=== PATIENT | male | born 1970 | race Caucasian/White ===

== ENCOUNTER 2023-07-06 10:10 | Outpatient (AMB) | payer BC, SELFPAY ==
[2023-07-06 10:11] VITALS: BP 136/92; PULSE 68; O2SAT 99; BMI 36.8
--- NOTE | 2023-07-06 10:11 | HO.NEPHOV_ITS ---
Vital Signs 07/06/23 10:11 07/06/23 19:08 Height 6 ft Weight 271 lb BMI 36.8 BP 136/92 H 120/70 Blood Pressure Location Lt brachial Lt brachial Position Sitting Supine Pulse 68 Pulse Source Pulse Oximeter Pulse Oximetry (%) 99 Oxygen Delivery Method Room Air Intake Visit Reasons: Hypertension/ Confirmed Floor Associate Required: No Accompanied by: Self / Same As Patient Allergies No Known Allergies Allergy (Verified 07/06/23 10:12) HPI Comments Details: Jose is a pleasant 52 yr old man with a h/o of longstanding hypertension Blood pressure has been difficult to control and hence this referral He is on Lisinopril 20 mg, HCTZ 12.5 mg and Amlodipine 5 mg daily Amlodipine was decreased from 10 mg down to 5mg due to edema h/o YOLANDE- uses CPAP most of the nights Drinks alcohol over weekends- socailly; Usualy , [place]- upto 4 ROS No weight loss No shortness of breath No chest pain No nausea or vomiting No diarrhea No polyuria, oliguria No edema No headache No palpitations or unexplained sweating PFSH Surgical History H/O colonoscopy (~07/2022) Family History Mother Breast cancer Brother Melanoma Father Cancer of prostate Social History (Updated 07/06/23 @ 10:13 by Ratna Moy) Patient Tobacco Use Status: Former Tobacco user Physical Exam Vital Signs: Last Vital Signs Pulse 68 07/06/23 10:11 BP 136/92 H 07/06/23 10:11 Pulse Ox 99 07/06/23 10:11 Oxygen Delivery Method Room Air 07/06/23 10:11 BMI result Body Mass Index 36.8 Const General: comfortable Nutritional Appearance: well nourished Orientation/consciousness: patient oriented x3 HEENT Head: No normal to inspection Mouth: moist mucous membranes Neck Neck: Yes supple and Yes no JVD Resp Auscultation: clear to auscultation bilaterally, no rales and rub present Cardio Jugular venous distension: no JVD Palpation: no palpable S3 and no palpable S4 Heart sounds: no rubs GI Palpation (GI): Soft to palpation and nontender Percussion: No Fluid wave present General: Yes no CVA tenderness Back/Spine/Pelvis Back: no CVA tenderness Skin General skin exam: no rashes or lesions noted Neuro General: patient oriented x3 Extrem General: Yes no pedal edema and No clubbing Results Reviewed Results Reviewed: Labs reveiwed Nephrology Results: No Data to Display Assessment & Plan Assessment & Plan (1) HTN (hypertension): Code(s): I10 - Essential (primary) hypertension Category: Medical (2) Sleep apnea: Code(s): G47.30 - Sleep apnea, unspecified Category: Medical Plan Middle aged man with difficult to control HTN in a setting of YOLANDE and elevated BMI Today the BP is acceptable I will obtain a 24 hr ABPM to better evaluate the control of BP Would continue current medications for now Discussed low salt diet and increasing physical activity. Limit alcohol intake Re evalate sleep apnea and CPAP machine. Refer to Sleep Medicine Orders: Orders AMB 24 Hour Blood Pressure Monitor PLACEMENT 15 Days I10 - Essential (primary) hypertension Referrals Sleep Medicine Referral G47.30 - Sleep apnea, unspecified Coding Level of Care Code New Pt Level 4 (34275) Diagnoses HTN (hypertension) I10 Sleep apnea G47.30
[2023-07-06 19:08] VITALS: BP 120/70
== END 2023-07-06 10:39 | disposition home or self-care (01) ==
PROVIDERS: PCP Family Medicine; Referring Provider Family Medicine; Visit Provider Internal Medicine Hypertension Specialist
DX: I10 Essential (primary) hypertension (principal); G47.30 Sleep apnea, unspecified
CPT/HCPCS: 99204

== ENCOUNTER → 2023-07-06 10:10 | Outpatient (BNVA) | payer BC, SELFPAY | PROVIDERS: PCP Family Medicine; Referring Provider Family Medicine; Visit Provider Internal Medicine Hypertension Specialist ==

== ENCOUNTER → 2023-08-21 09:15 | Outpatient (BNVA) | payer BC, SELFPAY | PROVIDERS: PCP Family Medicine; Visit Provider Internal Medicine Hypertension Specialist ==

== ENCOUNTER 2023-08-22 09:19 | Outpatient (AMB) | payer BC, SELFPAY ==
[2023-08-22 09:22] VITALS: BP 128/78; PULSE 76; O2SAT 97; BMI 37.3
--- NOTE | 2023-08-22 09:22 | HO.NEPHOV ---
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 [employer] Required: No Accompanied by: Self / Same As Patient Allergies No Known Allergies Allergy (Verified 08/22/23 09:24) Medication List - Last Reconciled 08/22/23 by Humza Frederick MD amlodipine 5 mg PO DAILY lisinopril 20 mg PO .evening rosuvastatin 5 mg PO DAILY sildenafil 100 mg PO PRN spironolacton-hydrochlorothiaz 25-25 mg 1 tab PO DAILY HPI Comments Details: Jose is a pleasant 52 yr old man with a h/o of longstanding hypertension Blood pressure has been difficult to control and hence this referral He is on Lisinopril 20 mg, HCTZ 12.5 mg and Amlodipine 5 mg daily Amlodipine was decreased from 10 mg down to 5mg due to edema h/o YOLANDE- uses CPAP most of the nights Drinks alcohol over weekends- socailly; Usualy , [place]- upto 4 ROS No weight loss No shortness of breath No chest pain No nausea or vomiting No diarrhea No polyuria, oliguria No edema No headache No palpitations or unexplained sweating 08/22/2023. Underwent 24 hour ABPM [facility] Surgical History H/O colonoscopy (~07/2022) Family History Mother Breast cancer Brother Melanoma Father Cancer of prostate Social History Patient Tobacco Use Status: Former Tobacco user Physical Exam Vital Signs: Last Vital Signs Pulse 76 08/22/23 09:22 BP 128/78 08/22/23 09:22 Pulse Ox 97 08/22/23 09:22 Oxygen Delivery Method Room Air 08/22/23 09:22 BMI result Body Mass Index 37.3 Const General: comfortable Nutritional Appearance: well nourished Orientation/consciousness: patient oriented x3 HEENT Head: No normal to inspection Mouth: moist mucous membranes Neck Neck: Yes supple and Yes no JVD Resp Auscultation: clear to auscultation bilaterally and no rales Cardio Jugular venous distension: no JVD Palpation: no palpable S3 and no palpable S4 Heart sounds: no rubs GI Palpation (GI): Soft to palpation and nontender Percussion: No Fluid wave present General: Yes no CVA tenderness Back/Spine/Pelvis Back: no CVA tenderness Skin General skin exam: no rashes or lesions noted Neuro General: patient oriented x3 Extrem General: Yes no pedal edema and No clubbing Results Reviewed Nephrology Results: No Data to Display Assessment & Plan Assessment & Plan (1) HTN (hypertension): Code(s): I10 - Essential (primary) hypertension Category: Medical (2) Sleep apnea: Code(s): G47.30 - Sleep apnea, unspecified Category: Medical Plan Middle aged man with difficult to control HTN in a setting of YOLANDE and elevated BMI Today the BP is acceptable ABPM. Results: Daytime average blood pressure was 150/102 Nighttime average blood pressure 133/87 24 hour average blood pressure was 145/97. Based on ABPM, blood pressure is suboptimally controlled with suboptimal nocturnal dipping. Sleep apnea could be contributing to this as well. Plan Discontinue hydrochlorothiazide Replace with Aldactazide 25/25 1 a day. Keep amlodipine 5 mg in the morning Switch lisinopril from 20 mg to q.p.m. instead of morning Discussed low salt diet and increasing physical activity. Limit alcohol intake Needs to monitor blood pressure at home. Based on home blood pressure readings we can readjust medications. Re evalate sleep apnea and CPAP machine. Refer to Sleep Medicine Orders: Orders Comprehensive Met. Panel Today I10 - Essential (primary) hypertension AMB 24HR B/P Monitor INTERPRETATION Today I10 - Essential (primary) hypertension Medications: New spironolacton-hydrochlorothiaz 25-25 mg 1 tab PO DAILY 30 tabs 3RF Changed From amlodipine 5 mg PO DAILY To amlodipine 5 mg PO DAILY 90 tabs 3RF Coding Level of Care Code Est Pt Level 4 (55116) Diagnoses HTN (hypertension) I10 Sleep apnea G47.30
== END 2023-08-22 09:50 | disposition home or self-care (01) ==
PROVIDERS: PCP Family Medicine; Visit Provider Internal Medicine Hypertension Specialist
DX: I10 Essential (primary) hypertension (principal); G47.30 Sleep apnea, unspecified
CPT/HCPCS: 93790; 99214

== ENCOUNTER → 2023-08-22 09:19 | Outpatient (BNVA) | payer BC, SELFPAY | PROVIDERS: PCP Family Medicine; Visit Provider Internal Medicine Hypertension Specialist ==

== ENCOUNTER 2023-08-22 10:11 | Outpatient (REF) | payer BC, SELFPAY ==
[2023-08-22 12:46] LABS: Alanine Aminotransferase 41 U/L (0-40); Albumin Level 4.5 g/dL (3.5-5.0); Alkaline Phosphatase 35 U/L (39-117); Anion Gap 14 (12-20); Aspartate Amino Transferase 24 U/L (5-37); Bilirubin Total 0.5 mg/dL (0.0-1.0); Blood Urea Nitrogen 12 mg/dL (9-16); Calcium 9.4 mg/dL (8.4-10.2); Carbon Dioxide 26 mmol/L (22-29); Chloride 104 mmol/L (96-108); Estimated Glomerular Filt Rate > 60; Glucose Random 103 mg/dL (60-115); Potassium 3.6 mmol/L (3.3-5.1); Sodium 140 mmol/L (135-145); Total Protein 6.9 g/dL (6.5-8.0)
== END 2023-08-22 10:12 | disposition home or self-care (01) ==
LOC: HO.10HDL 10:11
PROVIDERS: Referring Provider Family Medicine; Visit Provider Internal Medicine Hypertension Specialist
DX: I10 Essential (primary) hypertension (principal)
CPT/HCPCS: 36415; 80053

== ENCOUNTER 2023-09-21 13:50 | Outpatient (AMB) | payer BC, SELFPAY ==
[2023-09-21 13:51] VITALS: BP 122/82; PULSE 88; O2SAT 97; BMI 36.9
--- NOTE | 2023-09-21 13:51 | HO.NEPHOV_ITS ---
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 Allergies No Known Allergies Allergy (Verified 09/21/23 13:53) Medication List - Last Reconciled 09/21/23 by Humza Frederick MD amlodipine 5 mg PO DAILY lisinopril 20 mg PO .evening rosuvastatin 5 mg PO DAILY sildenafil 100 mg PO PRN spironolacton-hydrochlorothiaz 25-25 mg 1 tab PO DAILY HPI Comments Details: Jose is a pleasant 52 yr old man with a h/o of longstanding hypertension Blood pressure has been difficult to control and hence this referral He is on Lisinopril 20 mg, HCTZ 12.5 mg and Amlodipine 5 mg daily Amlodipine was decreased from 10 mg down to 5mg due to edema h/o YOLANDE- uses CPAP most of the nights Drinks alcohol over weekends- socailly; Usualy , [place]- upto 4 ROS No weight loss No shortness of breath No chest pain No nausea or vomiting No diarrhea No polyuria, oliguria No edema No headache No palpitations or unexplained sweating 08/22/2023. Underwent 24 hour ABPM 09/21/2023. He has been monitoring blood pressure at home and systolic blood pressure between 130 and 140 mm Hg with a diastolic between 80 and 90 mm Hg. No new complaints today. Tolerating all his medications PFSH Surgical History H/O colonoscopy (~07/2022) Family History Mother Breast cancer Brother Melanoma Father Cancer of prostate Social History Patient Tobacco Use Status: Former Tobacco user Physical Exam Vital Signs: Last Vital Signs Pulse 88 09/21/23 13:51 BP 122/82 09/21/23 13:51 Pulse Ox 97 09/21/23 13:51 Oxygen Delivery Method Room Air 09/21/23 13:51 BMI result Body Mass Index 36.9 Const General: comfortable; No acute distress Orientation/consciousness: patient oriented x3 Eyes General: appearance normal, both eyes and all related structures Visual Farooq: normal visual farooq by confrontation Neck Neck: Yes supple and Yes no JVD Resp Effort & Inspection: normal respiratory effort and respiratory effort not decreased Auscultation: rhonchi Cardio Palpation: no palpable S3 and no palpable S4 Heart sounds: no rubs GI Inspection: Yes normal to inspection Palpation (GI): Soft to palpation Percussion: Yes normal to percussion Auscultation: normal bowel sounds General: Yes no CVA tenderness Back/Spine/Pelvis Back: no CVA tenderness Skin General skin exam: no petechiae and no purpura Neuro General: patient oriented x3 and no focal motor deficits Extrem General: No clubbing and No edema Results Reviewed Nephrology Results: Sodium 140 mmol/L (135-145) 08/22/23 Potassium 3.6 mmol/L (3.3-5.1) 08/22/23 Chloride 104 mmol/L (96-108) 08/22/23 Carbon Dioxide 26 mmol/L (22-29) 08/22/23 BUN 12 mg/dL (9-16) 08/22/23 Creatinine 0.87 mg/dL (0.5-1.4) 08/22/23 Calcium 9.4 mg/dL (8.4-10.2) 08/22/23 Assessment & Plan Assessment & Plan (1) HTN (hypertension): Code(s): I10 - Essential (primary) hypertension Category: Medical (2) Sleep apnea: Code(s): G47.30 - Sleep apnea, unspecified Category: Medical Plan Middle aged man with difficult to control HTN in a setting of YOLANDE and elevated BMI Today the BP is acceptable ABPM. Results: Daytime average blood pressure was 150/102 Nighttime average blood pressure 133/87 24 hour average blood pressure was 145/97. Based on ABPM, blood pressure is suboptimally controlled with suboptimal nocturnal dipping. Sleep apnea could be contributing to this as well. Plan Keep Aldactazide 25/25 1 a day. Keep amlodipine 5 mg in the morning Continue lisinopril 20 mg q.p.m. instead of morning Discussed low salt diet and increasing physical activity. Limit alcohol intake Needs to monitor blood pressure at home. I have asked him to bring his blood pressure cuff during next visit to check the accuracy. Re evalate sleep apnea and CPAP machine. Refer to Sleep Medicine Orders: Referrals Sleep Medicine Referral G47.30 - Sleep apnea, unspecified Coding Level of Care Code Est Pt Level 3 (50024) Diagnoses HTN (hypertension) I10 Sleep apnea G47.30
== END 2023-09-21 14:09 | disposition home or self-care (01) ==
PROVIDERS: PCP Family Medicine; Visit Provider Internal Medicine Hypertension Specialist
DX: I10 Essential (primary) hypertension (principal); G47.30 Sleep apnea, unspecified
CPT/HCPCS: 99213

== ENCOUNTER → 2023-09-21 13:50 | Outpatient (BNVA) | payer BC, SELFPAY | PROVIDERS: PCP Family Medicine; Visit Provider Internal Medicine Hypertension Specialist ==

== ENCOUNTER 2023-12-21 10:25 | Outpatient (AMB) | payer BC, SELFPAY ==
[2023-12-21 10:33] VITALS: BP 110/74; PULSE 98; O2SAT 97; BMI 37.3
--- NOTE | 2023-12-21 10:33 | HO.NEPHOV_ITS ---
Vital Signs 12/21/23 10:33 Height 6 ft Weight 275 lb BMI 37.3 BP 110/74 Blood Pressure Location Rt brachial Position Sitting Pulse 98 Pulse Source Pulse Oximeter Pulse Oximetry (%) 97 Oxygen Delivery Method Room Air Intake Visit Reasons: Hypertension Statistical Geneticist Required: No Accompanied by: Self / Same As Patient Allergies No Known Allergies Allergy (Verified 12/21/23 10:35) Medication List - Last Reconciled 12/21/23 by Humza Frederick MD amlodipine 5 mg PO DAILY lisinopril 20 mg PO .evening rosuvastatin 5 mg PO DAILY sildenafil 100 mg PO PRN spironolacton-hydrochlorothiaz 25-25 mg 1 tab PO DAILY HPI Comments Details: Jose is a pleasant 52 yr old man with a h/o of longstanding hypertension Blood pressure has been difficult to control and hence this referral He is on Lisinopril 20 mg, HCTZ 12.5 mg and Amlodipine 5 mg daily Amlodipine was decreased from 10 mg down to 5mg due to edema h/o YOLANDE- uses CPAP most of the nights Drinks alcohol over weekends- socailly; Usualy , [place]- upto 4 ROS No weight loss No shortness of breath No chest pain No nausea or vomiting No diarrhea No polyuria, oliguria No edema No headache No palpitations or unexplained sweating 08/22/2023. Underwent 24 hour ABPM 09/21/2023. He has been monitoring blood pressure at home and systolic blood pressure between 130 and 140 mm Hg with a diastolic between 80 and 90 mm Hg. No new complaints today. Tolerating all his medications PFSH Surgical History H/O colonoscopy (~07/2022) Family History Mother Breast cancer Brother Melanoma Father Cancer of prostate Social History Patient Tobacco Use Status: Former Tobacco user Physical Exam Vital Signs: Last Vital Signs Pulse 98 12/21/23 10:33 BP 110/74 12/21/23 10:33 Pulse Ox 97 12/21/23 10:33 Oxygen Delivery Method Room Air 12/21/23 10:33 BMI result Body Mass Index 37.3 Const General: comfortable; No acute distress Orientation/consciousness: patient oriented x3 Eyes General: appearance normal, both eyes and all related structures Visual Farooq: normal visual farooq by confrontation Neck Neck: Yes supple and Yes no JVD Resp Effort & Inspection: normal respiratory effort and respiratory effort not decreased Auscultation: rhonchi Cardio Palpation: no palpable S3 and no palpable S4 Heart sounds: no rubs GI Inspection: Yes normal to inspection Palpation (GI): Soft to palpation Percussion: Yes normal to percussion Auscultation: normal bowel sounds General: Yes no CVA tenderness Back/Spine/Pelvis Back: no CVA tenderness Skin General skin exam: no petechiae and no purpura Neuro General: patient oriented x3 and no focal motor deficits Extrem General: No clubbing and No edema Results Reviewed Nephrology Results: Sodium 140 mmol/L (135-145) 08/22/23 Potassium 3.6 mmol/L (3.3-5.1) 08/22/23 Chloride 104 mmol/L (96-108) 08/22/23 Carbon Dioxide 26 mmol/L (22-29) 08/22/23 BUN 12 mg/dL (9-16) 08/22/23 Creatinine 0.87 mg/dL (0.5-1.4) 08/22/23 Calcium 9.4 mg/dL (8.4-10.2) 08/22/23 Assessment & Plan Assessment & Plan (1) HTN (hypertension): Code(s): I10 - Essential (primary) hypertension Category: Medical (2) Sleep apnea: Code(s): G47.30 - Sleep apnea, unspecified Category: Medical Plan Middle aged man with difficult to control HTN in a setting of YOLANDE and elevated BMI ABPM. Results: Daytime average blood pressure was 150/102 Nighttime average blood pressure 133/87 24 hour average blood pressure was 145/97. Based on ABPM, blood pressure is suboptimally controlled with suboptimal nocturnal dipping. Sleep apnea could be contributing to this as well. Currently BP is well controlled no orthostasis Plan Keep Aldactazide 25/25 1 a day. Keep amlodipine 5 mg in the morning Continue lisinopril 20 mg q.p.m. instead of morning Discussed low salt diet and increasing physical activity. Limit alcohol intake Continue to monitor blood pressure at home. Orders: Orders Lipid Panel Today G47.30 - Sleep apnea, unspecified, I10 - Essential (primary) hypertension Complete Blood Count Auto Diff Today G47.30 - Sleep apnea, unspecified, I10 - Essential (primary) hypertension Comprehensive Met. Panel Today G47.30 - Sleep apnea, unspecified, I10 - Essential (primary) hypertension Coding Level of Care Code Est Pt Level 4 (05920) Diagnoses HTN (hypertension) I10 Sleep apnea G47.30
== END 2023-12-21 10:54 | disposition home or self-care (01) ==
PROVIDERS: PCP Family Medicine; Referring Provider Family Medicine; Visit Provider Internal Medicine Hypertension Specialist
DX: I10 Essential (primary) hypertension (principal); G47.30 Sleep apnea, unspecified
CPT/HCPCS: 99214

== ENCOUNTER → 2023-12-21 10:25 | Outpatient (BNVA) | payer BC, SELFPAY | PROVIDERS: PCP Family Medicine; Visit Provider Internal Medicine Hypertension Specialist ==

== ENCOUNTER 2023-12-21 10:58 | Outpatient (REF) | payer BC, SELFPAY ==
[2023-12-21 13:08] LABS: MANUAL DIFF FLAG NO
[2023-12-21 13:13] LABS: Basophils Percent Auto 0.4 % (0-2); Eosinophils Absolute Auto 0.1 X10*3/uL (0.0-0.4); Eosinophils Percent Auto 0.9 % (0-4); Hematocrit 39.7 % (42.0-52.0); Hemoglobin 14.4 g/dl (14.0-18.0); Imm Gran Abs Auto 0.03 X10*3/uL (0.00-0.03); Imm Gran Pct Auto 0.4 % (0.0-0.4); Lymphocytes Absolute Auto 1.9 X10*3/uL (1.2-4.9); Lymphocytes Percent Auto 27.2 % (20-40); Mean Corpuscular HGB Conc 36.3 g/dl (31.0-36.0); Mean Corpuscular Volume 91.1 fL (80.0-98.0); Mean Platelet Volume 9.6 fL (9.4-12.4); Monocytes Absolute Auto 0.7 X10*3/uL (0.1-1.2); Monocytes Percent Auto 9.7 % (2-11); Neutrophils Absolute Auto 4.3 x10*3/uL (2.0-8.3); Neutrophils Percent Auto 61.4 % (45-73); Platelet Count 239 X10*3/uL (160-400); Red Blood Count 4.36 X10*6/uL (4.60-5.80); Red Cell Distribution Width 12.9 % (11.0-16.0)
[2023-12-21 13:31] LABS: Alanine Aminotransferase 54 U/L (0-40); Albumin Level 4.5 g/dL (3.5-5.0); Alkaline Phosphatase 27 U/L (39-117); Anion Gap 13 (12-20); Aspartate Amino Transferase 27 U/L (5-37); Bilirubin Total 0.6 mg/dL (0.0-1.0); Blood Urea Nitrogen 14 mg/dL (9-16); Calcium 9.4 mg/dL (8.4-10.2); Carbon Dioxide 27 mmol/L (22-29); Chloride 103 mmol/L (96-108); Cholesterol 156 mg/dL (<200); Estimated Glomerular Filt Rate > 60; Glucose Random 95 mg/dL (60-115); HDL Cholesterol 39 mg/dL (>40); LDL Cholesterol Calculated 91 mg/dL (<100); Potassium 4.1 mmol/L (3.3-5.1); Sodium 139 mmol/L (135-145); Total Protein 6.8 g/dL (6.5-8.0); Triglycerides 133 mg/dL (<150)
== END 2023-12-21 10:59 | disposition home or self-care (01) ==
LOC: HO.10HDL 10:58
PROVIDERS: Referring Provider Family Medicine; Visit Provider Internal Medicine Hypertension Specialist
DX: I10 Essential (primary) hypertension (principal); G47.30 Sleep apnea, unspecified
CPT/HCPCS: 36415; 80053; 80061; 85025

== ENCOUNTER 2024-01-02 10:19 | Outpatient (AMB) | payer BC, SELFPAY ==
--- NOTE | 2024-01-02 10:28 | MHC.OFFVIS ---
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 His last sleep study was completed more than 5 years ago. He is intermittently using his equipment 50% of the time as he sleeps over his girlfriend's home on the weekends and forgets to pack up the machine to bring along. He states the equipment is difficult to use and despite his surgery with [facility] in 2018 for a deviated septum, his breathing continues to be poor on the left side, the right side did improve. His girlfriend complains about his snoring and sleep disturbances. He likes to nap on the weekends for about an hour due to fatigue. Sleep questionnaire- Difficulty falling asleep- No Difficulty staying asleep- No Number of arousals- sleeps right through them because he is very tired Snoring-yes, awakes partner several times a night Witnessed apneas- No Gasping arousals- No Nocturia-yes about 1-2 times per week, awakes to use the bathroom, though he is not bothered by them GERD- No Vivid dreams-No Acting out dreams -No Abnormal behavior in sleep- No Abnormal movements in sleep- No Morning headaches- No Excessive daytime sleepiness-yes in the afternoons Daytime naps- yes mainly when home on the weekends and watching TV falls asleep for about an hour restless legs- No Hallucinations- No sleep paralysis- No Drop attacks- No Sleep study-yes over 5 years ago Results AHI desaturation of oxygen levels however doesn't remember. CPAP yes has an old machine with clunky equipment Sleep Hygiene- usually goes to bed at a decent time without any disturbances Sleep time - 9pm- 10pm Wake time - 7 am coffee/stimulant use Phone Electronics use Exercise not often, needs to start walking. Bedroom comfort- no issues falling asleep ESS PFSH Medical History (Updated 01/02/24 @ 10:50 by Nelia Frederick MD) Hypersomnia Snoring Obstructive sleep apnea Surgical History H/O colonoscopy (~07/2022) Family History Mother Breast cancer Brother Melanoma Father Cancer of prostate Social History Patient Tobacco Use Status: Former Tobacco user Review of Systems Const Details: General: Well appearing, obese male, cooperative. Reports fatigue, Reports snoring, Reports weight gain and Reports other (Partner complains of multiple episodes of loud snoring through the night.) Eyes Reports as per HPI ENT Reports nasal congestion (L. side breathing difficulty and didn't improve symptoms post surgery 2017) Resp Reports snoring and Reports other (difficulty with getting air into the L side of the nasal passageway) Reports nocturia (usually gets up 1-2 times per week at night to use the bathroom) Neuro Reports no additional complaints Psych Reports no additional complaints Endo Reports fatigue Physical Exam Vital Signs: Last Vital Signs Pulse 83 01/02/24 10:29 BP 122/82 01/02/24 10:29 Pulse Ox 97 01/02/24 10:29 Oxygen Delivery Method Room Air 01/02/24 10:29 BMI result Body Mass Index 37.3 ALert awake oriented X3 Mood- stable Speech- normal Cognition- normal Const Orientation/consciousness: patient oriented x3 Neuro General: patient oriented x3, moves all extremities, no focal motor deficits and CN's II-XI intact bilaterally Motor exam (neuro): 5/5 motor strength present throughout Assessment & Plan Assessment & Plan (1) Obstructive sleep apnea: Code(s): G47.33 - Obstructive sleep apnea (adult) (pediatric) Category: Medical (2) Snoring: Code(s): R06.83 - Snoring Category: Medical (3) Hypersomnia: Code(s): G47.10 - Hypersomnia, unspecified Category: Medical Plan Home sleep tets to reevaluate his sleep apnea continue using CPAP - compliance stressed Orders: Orders RT home sleep study 10/22/24 G47.10 - Hypersomnia, unspecified, R06.83 - Snoring Coding Level of Care Code New Pt Level 4 (67588) Diagnoses Obstructive sleep apnea G47.33 Snoring R06.83 Hypersomnia G47.10 [place] Sleepiness Scale Questions Sitting and reading: moderate chance of dozing Watching TV: moderate chance of dozing Sitting inactive in a theater, movie etc.: would never doze As a passenger in a car for an hour without break: moderate chance of dozing Lying down in the afternoon when circumstances permit: moderate chance of dozing Sitting and talking to someone: would never doze Sitting quietly after lunch without alcohol: slight chance of dozing In a car, while stopped for a few minutes in the traffic: would never doze ESS < 10: normal, ESS > 12: pathologic: 9
[2024-01-02 10:29] VITALS: BP 122/82; PULSE 83; O2SAT 97; BMI 37.3
== END 2024-01-02 10:52 | disposition home or self-care (01) ==
PROVIDERS: PCP Family Medicine; Visit Provider Psychiatry & Neurology Neurology
DX: G47.33 Obstructive sleep apnea (adult) (pediatric) (principal); R06.83 Snoring; G47.10 Hypersomnia, unspecified
CPT/HCPCS: 99204

== ENCOUNTER → 2024-01-02 10:19 | Outpatient (BNVA) | payer BC, SELFPAY | PROVIDERS: PCP Family Medicine; Visit Provider Psychiatry & Neurology Neurology ==

== ENCOUNTER → 2024-02-15 08:57 | Outpatient (REF) | payer BC, SELFPAY | LOC: HO.SL 08:57 | PROVIDERS: PCP Family Medicine; Visit Provider Psychiatry & Neurology Neurology | DX: G47.10 Hypersomnia, unspecified (principal); R06.83 Snoring | CPT/HCPCS: 95806 ==

== ENCOUNTER → 2024-02-15 09:12 | Outpatient (BNV) | payer BC, SELFPAY | PROVIDERS: PCP Family Medicine; Visit Provider Psychiatry & Neurology Neurology | DX: G47.33 Obstructive sleep apnea (adult) (pediatric) (principal) | CPT/HCPCS: 95806 ==

== ENCOUNTER → 2024-03-21 20:30 | Outpatient (REF) | payer BC, SELFPAY | LOC: HO.SL 20:30 | PROVIDERS: PCP Family Medicine; Visit Provider Psychiatry & Neurology Neurology | DX: G47.33 Obstructive sleep apnea (adult) (pediatric) (principal) | CPT/HCPCS: 95811 ==

== ENCOUNTER → 2024-03-21 22:52 | Outpatient (BNV) | payer BC, SELFPAY | PROVIDERS: PCP Family Medicine; Visit Provider Psychiatry & Neurology Neurology | DX: G47.33 Obstructive sleep apnea (adult) (pediatric) (principal) | CPT/HCPCS: 95811 ==

== ENCOUNTER 2024-04-04 10:59 | Outpatient (AMB) | payer BC, SELFPAY ==
--- NOTE | 2024-04-04 11:05 | MHC.OFFVIS ---
Vital Signs 04/04/24 11:06 Height 6 ft Weight 272 lb 8 oz BMI 37.0 BP 110/80 Blood Pressure Location Lt brachial Position Sitting Pulse 90 Pulse Source Pulse Oximeter Pulse Oximetry (%) 96 Oxygen Delivery Method Room Air Intake Visit Reasons: 3m follow up Sleep Apnea Intake Note: Patient presents for a 3 mo fu for YOLANDE. Pt has not been set up with new machine yet. 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 HST Feb 2024: Severe degree of sleep apnea, AHI was 72/hr and O2 Lucas was 65%. Sleep Hygiene- usually goes to bed at 9pm- wakes up at 7am without any disturbances. No bathroom breaks at night and no Parasomnias. Denies Caffeine or stimulant use. He is concerned about his L. nare intake of O2 as it has been poor since the Septoplasty in 2017 with [facility]. He has HTN, well managed with 3 BP meds. Mood and Diet is okay. Needs to start walking, he does walk daily with the dogs. BMI is elevated will discuss weight management and nutrition counseling at next visit. Denies morning headaches, RLS. Denies smoking, drinks socially. PCP Leroy Xie [facility] Primary Care : labs completed in Dec 2023 with [facility] Medical History Hypersomnia Snoring Obstructive sleep apnea Surgical History H/O colonoscopy (~07/2022) Family History Mother Breast cancer Brother Melanoma Father Cancer of prostate Social History Patient Tobacco Use Status: Former Tobacco user Review of Systems Const All systems reviewed & are unremarkable except as noted in HPI and below Physical Exam Vital Signs: Last Vital Signs Pulse 90 04/04/24 11:06 BP 110/80 04/04/24 11:06 Pulse Ox 96 04/04/24 11:06 Oxygen Delivery Method Room Air 04/04/24 11:06 BMI result Body Mass Index 37.0 ALert awake oriented X3 Mood- stable Speech- normal Cognition- normal Const Orientation/consciousness: patient oriented x3 Neuro General: patient oriented x3, moves all extremities, no focal motor deficits and CN's II-XI intact bilaterally Motor exam (neuro): 5/5 motor strength present throughout Results Reviewed Results Reviewed: HST 2023 Severe YOLANDE AHI is 72/ O2 Lucas 65% Labs Nephrology Dec 2023 and [facility] in June 2023 LDL is elevated, ALT elvevated Assessment & Plan Assessment & Plan (1) Snoring: Code(s): R06.83 - Snoring Category: Medical (2) History of deviated nasal septum: Code(s): Z87.09 - Personal history of other diseases of the respiratory system Category: Medical (3) Hypersomnia: Code(s): G47.10 - Hypersomnia, unspecified Category: Medical (4) HTN (hypertension): Code(s): I10 - Essential (primary) hypertension Category: Medical Qualifiers: Hypertension type: primary hypertension Qualified Code(s): I10 - Essential (primary) hypertension (5) Obstructive sleep apnea: Code(s): G47.33 - Obstructive sleep apnea (adult) (pediatric) Category: Medical Plan YOLANDE severe degree: AHI 72 and O2 Lucas 65%, witnessed apneas and snoring. 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 ENT Referral: -H/O Deviated Septum: will send for ENT consult blockage of intake of O2 in the L. Nare. Labs: Daytime fatigue, R/O deficiencies: B12 folate/ MMA /Homocysteine/ TSH/ Vit D Orders: Orders Vitamin B12 and Folate Today G47.10 - Hypersomnia, unspecified, G47.19 - Other hypersomnia Methylmalonic Acid Today G47.10 - Hypersomnia, unspecified, G47.19 - Other hypersomnia Homocysteine Today G47.19 - Other hypersomnia IRON PROFILE Today G47.19 - Other hypersomnia Vitamin D 25-OH Total Today G47.19 - Other hypersomnia TSH reflex Free T4 Today G47.19 - Other hypersomnia Hemoglobin A1c Today G47.33 - Obstructive sleep apnea (adult) (pediatric), I10 - Essential (primary) hypertension Referrals Ear/Nose/Throat Referral R06.83 - Snoring, Z87.09 - Personal history of other diseases of the respiratory system Coding Level of Care Code Est Pt Level 4 (24459) Diagnoses Snoring R06.83 History of deviated nasal septum Z87.09 Hypersomnia G47.10 Primary hypertension I10 Hypertension type: primary hypertension Obstructive sleep apnea G47.33 Time Spent (min) 30 Comment evaluation
[2024-04-04 11:06] VITALS: BP 110/80; PULSE 90; O2SAT 96; BMI 37.0
== END 2024-04-04 11:31 | disposition home or self-care (01) ==
PROVIDERS: PCP Family Medicine; Visit Provider Physician Assistant Medical
DX: R06.83 Snoring (principal); Z87.09 Personal history of other diseases of the respiratory system; G47.10 Hypersomnia, unspecified; I10 Essential (primary) hypertension; G47.33 Obstructive sleep apnea (adult) (pediatric)
CPT/HCPCS: 99214

== ENCOUNTER → 2024-04-04 10:59 | Outpatient (BNVA) | payer BC, SELFPAY | PROVIDERS: PCP Family Medicine; Visit Provider Physician Assistant Medical | DX: G47.10 Hypersomnia, unspecified (principal); R06.83 Snoring ==

== ENCOUNTER 2024-07-18 14:47 | Outpatient (AMB) | payer BC, SELFPAY ==
[2024-07-18 14:45] VITALS: BP 108/66; PULSE 88; O2SAT 96; BMI 37.6
--- NOTE | 2024-07-18 14:45 | HO.NEPHOV ---
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 Accompanied by: Self / Same As Patient Allergies Seasonal Allergies Allergy (Unknown, Verified 07/18/24 14:47) Unknown Medication List - Last Reconciled 07/18/24 by Humza Frederick MD amlodipine 2.5 mg PO DAILY lisinopril 20 mg PO .evening rosuvastatin 5 mg PO DAILY sildenafil 100 mg PO PRN spironolacton-hydrochlorothiaz 25-25 mg 1 tab PO DAILY HPI Comments Details: Jose is a pleasant 52 yr old man with a h/o of longstanding hypertension Blood pressure has been difficult to control and hence this referral He is on Lisinopril 20 mg, HCTZ 12.5 mg and Amlodipine 5 mg daily Amlodipine was decreased from 10 mg down to 5mg due to edema h/o YOLANDE- uses CPAP most of the nights Drinks alcohol over weekends- socailly; Usualy , [place]- upto 4 ROS No weight loss No shortness of breath No chest pain No nausea or vomiting No diarrhea No polyuria, oliguria No edema No headache No palpitations or unexplained sweating 08/22/2023. Underwent 24 hour ABPM 09/21/2023. He has been monitoring blood pressure at home and systolic blood pressure between 130 and 140 mm Hg with a diastolic between 80 and 90 mm Hg. No new complaints today. Tolerating all his medications 07/18/24 Doing well and blood pressure is well controlled No lightheadedness [facility] Medical History Hypersomnia Snoring Obstructive sleep apnea Surgical History H/O colonoscopy (~07/2022) Family History Mother Breast cancer Brother Melanoma Father Cancer of prostate Social History Patient Tobacco Use Status: Former Tobacco user Physical Exam Vital Signs: Last Vital Signs Pulse 88 07/18/24 14:45 BP 108/66 07/18/24 14:45 Pulse Ox 96 07/18/24 14:45 Oxygen Delivery Method Room Air 07/18/24 14:45 BMI result Body Mass Index 37.6 Const General: comfortable; No acute distress Orientation/consciousness: patient oriented x3 Eyes General: appearance normal, both eyes and all related structures Visual Farooq: normal visual farooq by confrontation Neck Neck: Yes supple and Yes no JVD Resp Effort & Inspection: normal respiratory effort and respiratory effort not decreased Auscultation: rhonchi Cardio Palpation: no palpable S3 and no palpable S4 Heart sounds: no rubs GI Inspection: Yes normal to inspection Palpation (GI): Soft to palpation Percussion: Yes normal to percussion Auscultation: normal bowel sounds General: Yes no CVA tenderness Back/Spine/Pelvis Back: no CVA tenderness Skin General skin exam: no petechiae and no purpura Neuro General: patient oriented x3 and no focal motor deficits Extrem General: No clubbing and No edema Results Reviewed Nephrology Results: Hgb 14.4 g/dl (14.0-18.0) 12/21/23 WBC 7.0 X10*3/uL (4.8-10.8) 12/21/23 Plt Count 239 X10*3/uL (160-400) 12/21/23 Sodium 139 mmol/L (135-145) 12/21/23 Potassium 4.1 mmol/L (3.3-5.1) 12/21/23 Chloride 103 mmol/L (96-108) 12/21/23 Carbon Dioxide 27 mmol/L (22-29) 12/21/23 BUN 14 mg/dL (9-16) 12/21/23 Creatinine 1.01 mg/dL (0.5-1.4) 12/21/23 Calcium 9.4 mg/dL (8.4-10.2) 12/21/23 Assessment & Plan Assessment & Plan (1) HTN (hypertension): Code(s): I10 - Essential (primary) hypertension Category: Medical Qualifiers: Hypertension type: primary hypertension Qualified Code(s): I10 - Essential (primary) hypertension (2) Sleep apnea: Code(s): G47.30 - Sleep apnea, unspecified Category: Medical Plan Middle aged man with difficult to control HTN in a setting of YOLANDE and elevated BMI ABPM. Results: Daytime average blood pressure was 150/102 Nighttime average blood pressure 133/87 24 hour average blood pressure was 145/97. Based on ABPM, blood pressure is suboptimally controlled with suboptimal nocturnal dipping. Sleep apnea could be contributing to this as well. Currently BP is well controlled no orthostasis Plan Keep Aldactazide 25/25 1 a day. Keep amlodipine 5 mg in the morning Continue lisinopril 20 mg q.p.m. instead of morning Discussed low salt diet and increasing physical activity. Limit alcohol intake 07/18/2024. The blood pressure relatively low today. I will decrease amlodipine down to 2.5 mg in the morning. Encouraged to keep monitoring blood pressure at home. Orders: Orders Basic Metabolic Panel 6 Months I10 - Essential (primary) hypertension Medications: Changed From amlodipine 5 mg PO DAILY 90 tabs 3RF To amlodipine 2.5 mg PO DAILY Coding Level of Care Code Est Pt Level 4 (66847) Diagnoses Primary hypertension I10 Hypertension type: primary hypertension Sleep apnea G47.30
== END 2024-07-18 15:04 | disposition home or self-care (01) ==
LOC: HO.HKA 14:48
PROVIDERS: PCP Family Medicine; Visit Provider Internal Medicine Hypertension Specialist
DX: I10 Essential (primary) hypertension (principal); G47.30 Sleep apnea, unspecified
CPT/HCPCS: 99214

== ENCOUNTER 2024-08-08 09:00 | Outpatient (AMB) | payer BC, SELFPAY ==
--- NOTE | 2024-08-08 09:06 | A.OFFVIS_ITS ---
Vital Signs 08/08/24 09:07 Height 6 ft Weight 278 lb 8 oz BMI 37.8 BP 116/78 Blood Pressure Location Rt brachial Pulse 84 Pulse Source Pulse Oximeter Pulse Oximetry (%) 96 Oxygen Delivery Method Room Air Intake Visit Reasons: 3 mnts f/u Intake Note: Patient presents follow up YOLANDE. ENT booked 08/15/24. Compliance in chart(54/90 days 60%, >=4hrs-50 days 56%, A usage 5hrs 28min, M leaks- 1.0, AHI-1.8) Allergies Seasonal Allergies Allergy (Unknown, Verified 08/08/24 09:09) Unknown HPI Comments Details: 54 y/o male with hypertension, presents for f/u of obstructive sleep apnea. HST Feb 2024: Severe degree of sleep apnea, AHI was 72/hr and O2 Lucas was 65%. YOLANDE Compliance Report 04/2024- 07/2024 Usage 54/90 days and 60% >4 hours usage 5 hours 28min Press Median Leaks 1.0/hr and AHI 1.8/hr 07/30/24 referrred to urology, elevated PSA. Sleep is improved with the cpap, he goes to bed at 11pm- wakes up at 7am, usually up for the bathroom 2-3 times and is being followed by urology for BPH. He says he likes sleeping with the cpap and feels refreshed when he uses it. He has two machines, one is at his GF's home and that machine does not transmit data, so he is only able to record data from his home machine. He has a f/u with ENT in August for evaluation of his L. nare obstruction, it may be due to a polyp, he thinks as he has had poor O2 intake since the septoplasty in 2018. 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 Mood and Diet is okay. We discussed the need to start walking, or swimming daily, to reduce weight. He does walk daily with the dog. BMI is elevated and he used to go to the gym, and says he will start again as the weather is starting to improve now. Denies morning headaches, and denies RLS symptoms. Denies smoking and drinks socially. PCP Leroy Xei [facility] Primary Care : labs completed in June 2024 with [facility], glucose is elevated, reviewed with patient. PFSH Medical History Hypersomnia Snoring Obstructive sleep apnea Surgical History H/O colonoscopy (~07/2022) Family History Mother Breast cancer Brother Melanoma Father Cancer of prostate Social History Patient Tobacco Use Status: Former Tobacco user Review of Systems Neuro Reports Abnormal speech present Physical Exam Vital Signs: Last Vital Signs Pulse 84 08/08/24 09:07 BP 116/78 08/08/24 09:07 Pulse Ox 96 08/08/24 09:07 Oxygen Delivery Method Room Air 08/08/24 09:07 BMI result Body Mass Index 37.8 Const General: cooperative, comfortable and no acute distress Orientation/consciousness: patient oriented x3 Eyes General: appearance normal, both eyes and all related structures Visual Willams: normal visual willams by confrontation Pupils: Equal, round and reactive pupils present Neck Neck: Yes full ROM Resp Effort & Inspection: normal respiratory effort and able to speak in complete sentences Auscultation: rhonchi Cardio Palpation: no palpable S3 and no palpable S4 Heart sounds: no rubs GI Inspection: Yes normal to inspection Palpation (GI): Soft to palpation Percussion: Yes normal to percussion Auscultation: normal bowel sounds General: Yes no CVA tenderness Back/Spine/Pelvis Back: no CVA tenderness Skin General skin exam: no petechiae and no purpura Neuro Other: normal exam, cognition normal, Mood- stable, Speech- normal, no tremors noted, gait antalgic. General: patient oriented x3 and moves all extremities Cranial nerves: Yes Facial sensation intact/muscles of mastication intact, Yes Equal, round and reactive pupils present, Yes Normal accommodation reflex present, Yes Normal facial strength present, Yes Midline tongue present, Yes Ability to bilaterally rotate head present and Yes Ability to bilaterally elevate shoulders present Cognition (Neuro): normal cognition Speech: Abnormal speech present Gait exam (Neuro): Antalgic gait present Motor exam (neuro): 5/5 motor strength present throughout and Normal motor muscle tone present throughout Extrem General: No clubbing and No edema Psych Appearance: grossly normal Thought process: Normal thought process present Thought content: Normal thought content present Results Reviewed Results Reviewed: YOLANDE Compliance and Labs reviewed with patient: YOLANDE Compliance Report 04/2024- 07/2024 Usage 54/90 days and 60% >4 hours usage 5 hours 28min Press Median Leaks 1.0/hr and AHI 1.8/hr Assessment & Plan Assessment & Plan (1) Obstructive sleep apnea: Code(s): G47.33 - Obstructive sleep apnea (adult) (pediatric) Category: Medical (2) Snoring: Code(s): R06.83 - Snoring Category: Medical (3) History of deviated nasal septum: Comment: ENT August 2024 in [place] Code(s): Z87.09 - Personal history of other diseases of the respiratory system Category: Medical Plan YOLANDE severe degree: AHI 72 and O2 Lucas 65%, compliance reviewed with patient, now on cpap. ENT Referral: is pending (in [place] August 2024) H/O Deviated Septum and septoplasty 2018, blockage of air during inspiration in the L. nare. Labs completed June 2024 reviewed with patient and wnl. Patient Instructions: Sleep Hygiene provided: set a scheduled bedtime and wake time to help regulate the circadian rhythm and balance the release of pituitary hormones. Sleep in a dark room, temperatures below 68 degrees, and no devices n bed. Limit caffeinated products 6 hours prior to bed, and limit fluids 2-4 hours prior to bed. Gentle night yoga, diffusing essential oils, and playing soft music can be relaxing. Discussed the number one modifiable risk factor of cardiovascular events is hypertension, he is well managed on 3 bp meds now, cutting amlodipine into 1/2 due to hypotensive episodes. He sleeps well overall and washes his mask, tubing, replaces filter and fills reservoir as needed. Discussed the possibility of support with a GLP-1 agonist to help him get started, and he will discuss it with his PCP. Coding Level of Care Code Est Pt Level 4 (27575) Diagnoses Obstructive sleep apnea G47.33 Snoring R06.83 History of deviated nasal septum Z87.09 Time Spent (min) 20 Comment improving
[2024-08-08 09:07] VITALS: BP 116/78; PULSE 84; O2SAT 96; BMI 37.8
== END 2024-08-08 09:39 | disposition home or self-care (01) ==
LOC: HO.HSMS 09:00
PROVIDERS: PCP Family Medicine; Visit Provider Physician Assistant Medical
DX: G47.33 Obstructive sleep apnea (adult) (pediatric) (principal); R06.83 Snoring; Z87.09 Personal history of other diseases of the respiratory system
CPT/HCPCS: 99214

== ENCOUNTER → 2024-08-08 09:00 | Outpatient (BNVA) | payer BC, SELFPAY | PROVIDERS: PCP Family Medicine; Visit Provider Physician Assistant Medical ==

== ENCOUNTER 2024-11-08 08:57 | Outpatient (AMB) | payer BC, SELFPAY ==
--- NOTE | 2024-11-08 09:01 | MHC.OFFVIS ---
Vital Signs 11/08/24 09:02 Height 6 ft Weight 282 lb 2 oz BMI 38.3 BP 118/82 Blood Pressure Location Lt brachial Position Sitting Pulse 73 Pulse Source Pulse Oximeter Pulse Oximetry (%) 96 Oxygen Delivery Method Room Air Intake Visit Reasons: 3 mnth f/u Intake Note: Patient presents follow up YOLANDE. Compliance in chart(79/90days, >=4hrs-81%, Average Usage- 4hrs 59min, Pressure- 9cm, Med Leaks-1.2, AHI-1.9). Accompanied by: Self / Same As Patient Allergies Seasonal Allergies Allergy (Unknown, Verified 11/08/24 09:08) Unknown HPI Comments Details: 54 y/o male with hypertension, presents for f/u of obstructive sleep apnea. HST Feb 2024: Severe degree of sleep apnea, AHI was 72/hr and O2 Lucas was 65%. YOLANDE Compliance Report 07/2024-10/2024 Usage 70/90 days and 81% >4 hours, Avg use 4hrs and 59min Press Median 9cmH20 Leaks 1.2/hr and AHI 1.9/hr He washes mask, rinses hoses, changes filter and fill reservoir with water. He says his sleep has improved with the cpap uses. He goes to bed at 11pm, wakes up at 7am with 0-1 bathroom break at night. He says he likes sleeping with the cpap and feels refreshed in the AM. He has two machines, one is at his GF's home and that machine does not transmit data, so he is only able to record data from his home machine for compliance. He would like to link both machines for compliance purposes, and so he does not need to transport the cpap along with him when he sleeps over at his g/f's home. He has a f/u with ENT for evaluation of his L. nare obstruction due to polyp and h/o of septoplastin in 2018, however his insurance changed. Mood and Diet is okay. We discussed the need to start walking, or swimming daily, to manage and or reduce weight. He does walk daily with the dog. [facility] Medical History Hypersomnia Snoring Obstructive sleep apnea Surgical History H/O colonoscopy (~07/2022) Family History Mother Breast cancer Brother Melanoma Father Cancer of prostate Social History Patient Tobacco Use Status: Former Tobacco user Physical Exam Vital Signs: Last Vital Signs Pulse 73 11/08/24 09:02 BP 118/82 11/08/24 09:02 Pulse Ox 96 11/08/24 09:02 Oxygen Delivery Method Room Air 11/08/24 09:02 BMI result Body Mass Index 38.3 Const General: cooperative, comfortable and no acute distress Orientation/consciousness: patient oriented x3 Eyes General: appearance normal, both eyes and all related structures Visual Willams: normal visual willams by confrontation Pupils: Equal, round and reactive pupils present Neck Neck: Yes full ROM Resp Effort & Inspection: normal respiratory effort and able to speak in complete sentences Auscultation: rhonchi Cardio Palpation: no palpable S3 and no palpable S4 Heart sounds: no rubs GI Inspection: Yes normal to inspection Palpation (GI): Soft to palpation Percussion: Yes normal to percussion Auscultation: normal bowel sounds General: Yes no CVA tenderness Back/Spine/Pelvis Back: no CVA tenderness Skin General skin exam: no petechiae and no purpura Neuro Other: normal exam, cognition normal, Mood- stable, Speech- normal, no tremors noted, gait antalgic. General: patient oriented x3 and moves all extremities Cranial nerves: Yes Equal, round and reactive pupils present, Yes Normal accommodation reflex present, Yes Normal facial strength present, Yes Midline tongue present, Yes Ability to bilaterally rotate head present and Yes Ability to bilaterally elevate shoulders present Cognition (Neuro): normal cognition Gait exam (Neuro): Antalgic gait present Extrem General: No clubbing and No edema Psych Appearance: grossly normal Mental Status: mental status grossly normal Thought process: Normal thought process present Thought content: Normal thought content present Results Reviewed Results Reviewed: YOLANDE Compliance Report 07/2024-10/2024 Usage 70/90 days and 81% >4 hours, Avg use 4hrs and 59min Press Median 9cmH20 Leaks 1.2/hr and AHI 1.9/hr He washes mask, rinses hoses, changes filter and fill reservoir with water. Assessment & Plan Assessment & Plan (1) Obstructive sleep apnea: Code(s): G47.33 - Obstructive sleep apnea (adult) (pediatric) Category: Medical (2) Snoring: Code(s): R06.83 - Snoring Category: Medical (3) History of deviated nasal septum: Comment: ENT August 2024 in [place] Code(s): Z87.09 - Personal history of other diseases of the respiratory system Category: Medical Plan YOLANDE severe degree: AHI 72 and O2 Lucas 65%, compliance reviewed with patient, and has improved. ENT Referral: is still pending insurances changes may need new referal. H/O Deviated Septum and septoplasty 2018, blockage of air during inspiration in the L. nare. Labs completed June 2024 reviewed with patient and wnl. F/u in 6 monhts. Patient Instructions: Sleep Hygiene provided: set a scheduled bedtime and wake time to help regulate the circadian rhythm and balance the release of pituitary hormones. Sleep in a dark room, temperatures below 68 degrees, and no devices n bed. Limit caffeinated products 6 hours prior to bed, and limit fluids 2-4 hours prior to bed. Gentle night yoga, diffusing essential oils, and playing soft music can be relaxing. Call your sleep / mentor / sleep company and f/u re: linking your personal cpap machine and your machine #2 at the girlfriend's home in order to show compliance data, and so you don't have the inconvenience of transporting your cpap on the weekends to the g/f's home. Coding Level of Care Code Est Pt Level 4 (66630) Diagnoses Obstructive sleep apnea G47.33 Snoring R06.83 History of deviated nasal septum Z87.09
[2024-11-08 09:02] VITALS: BP 118/82; PULSE 73; O2SAT 96; BMI 38.3
== END 2024-11-08 09:40 | disposition home or self-care (01) ==
LOC: HO.HSMS 08:58
PROVIDERS: PCP Family Medicine; Visit Provider Physician Assistant Medical
DX: G47.33 Obstructive sleep apnea (adult) (pediatric) (principal); R06.83 Snoring; Z87.09 Personal history of other diseases of the respiratory system
CPT/HCPCS: 99214

== ENCOUNTER 2024-11-14 07:55 | Outpatient (AMB) | payer BC, SELFPAY ==
--- NOTE | 2024-11-14 08:01 | MHC.OFFVIS ---
Intake Visit Reasons: Erectile Dysfunction Intake Note: patient presents today for: new pt ED urology medications: none blood thinners: none Systems Development Consultant Required: No Accompanied by: Self / Same As Patient Allergies Seasonal Allergies Allergy (Unknown, Verified 11/14/24 08:36) Unknown Medication List - Last Reconciled 11/14/24 by NICOLASA Leonard- amlodipine 5 mg PO DAILY lisinopril 20 mg PO .evening rosuvastatin 5 mg PO DAILY sildenafil 100 mg PO .PRN PRN 30 days spironolacton-hydrochlorothiaz 25-25 mg 1 tab PO DAILY HPI Comments Details: Jose is a 54-year-old male patient of Dr. Xie. He has a past medical history of sleep apnea. He presents to the office today as a new patient for erectile dysfunction. In discussion with the patient today he reports noting over the last year he has been having issues maintaining his erections. He reports having followed up with his PCP and has been utilizing p.r.n. Viagra with some improvement however recommendations were made for urology referral for further assessment evaluation. When asked he denies any bothersome urinary issues. He denies urinary urgency, urinary frequency, incontinence, nocturia, hematuria, dysuria, foul smelling urine, changes to urinary stream, flank pain, fever, and or chills. He is happy with his current voiding parameters. When asked he denies any previous trauma. When asked he does feel p.r.n. Viagra has been helpful. He also reports previously trialing p.r.n. tadalafil however do not feel this was as helpful as Viagra. We did discuss potential causes of ED as well as further treatment options and risks and benefits of these treatment options. We discussed the importance of lifestyle modifications to assist with ED as well as overall health and well being. All questions were answered. He otherwise offers no other issues or concerns at this time. We discussed the patient's erectile dysfunction and explored various treatment options, including oral medications. I explained the potential benefits and limitations of each medication, emphasizing the importance of lifestyle modifications such as adequate sleep, stress management, weight loss, and regular physical activity. We also discussed the possibility of penile injection therapy and penile prosthetics if oral medications are not effective. I recommended checking testosterone levels and PSA to rule out underlying causes of erectile dysfunction. The patient was advised to have the lab work done two hours after waking up, with no fasting required. We also discussed the importance of regular monitoring of PSA levels for prostate cancer surveillance. 1. Erectile Dysfunction The patient is experiencing erectile dysfunction, with sildenafil 100 mg providing somewhat results. Alternative oral medications, including tadalafil and vardenafil, were discussed, with tadalafil offering a longer duration of action. Lifestyle changes such as better sleep, stress reduction, and regular exercise were recommended to support treatment. 2. Sleep Apnea The patient is managing sleep apnea with CPAP therapy, which is crucial for overall health and may influence erectile dysfunction. Patient Instructions - Continue using CPAP machine for sleep apnea management. - Follow up with lab tests for testosterone and PSA levels two hours after waking up. - Maintain a healthy lifestyle with regular exercise, stress management, and adequate sleep. - Consider discussing alternative erectile dysfunction treatments if current medication is ineffective. [facility] Medical History Hypersomnia Snoring Obstructive sleep apnea Surgical History H/O colonoscopy (~07/2022) Family History Mother Breast cancer Brother Melanoma Father Cancer of prostate Social History Patient Tobacco Use Status: Former Tobacco user Review of Systems Const All systems reviewed & are unremarkable except as noted in HPI and below Physical Exam Const General: cooperative, healthy appearing, comfortable, no acute distress, well developed, alert and awake Nutritional Appearance: obese Orientation/consciousness: patient oriented x3 Limitations: no limitations HEENT Head: Yes normal to inspection, Yes normocephalic and Yes atraumatic Ears: hearing grossly normal bilaterally Eyes General: appearance normal, both eyes and all related structures Neck Neck: Yes normal visual inspection and Yes trachea midline Chest Chest palpation & inspection: normal inspection of the chest Resp Effort & Inspection: normal respiratory effort and able to speak in complete sentences Cardio Rate: regular rate GI Inspection: Yes normal to inspection General: Yes no CVA tenderness Back/Spine/Pelvis Back: no CVA tenderness Skin General skin exam: no rashes or lesions noted Neuro General: patient oriented x3 Extrem General: Yes normal to inspection Psych Appearance: grossly normal and well kempt Mental Status: mental status grossly normal Speech and movement: Normal speech and movement present and Clear speech present Affect: normal affect Attitude: cooperative Thought process: Normal thought process present Thought content: Normal thought content present Insight: Fair insight present (Psych) Judgement: Fair judgement present (Psych) Results AMB Urinalysis, Automated UA Leukoctes 0 Silvina/uL Last Edit by IRAIDA Vaca on 11/14/24 08:11 UA Nitrite Negative Last Edit by IRAIDA Vaca on 11/14/24 08:11 UA Urobilinogen 0.2 mg/dL Last Edit by [place] Hugo CCM on 11/14/24 08:11 UA Protein 0 mg/dL Last Edit by [place] Hugo CCM on 11/14/24 08:11 UA pH 6.0 Last Edit by [place] Hugo CCM on 11/14/24 08:11 UA Blood 0 Domenico/uL Last Edit by [place] Hugo CCM on 11/14/24 08:11 UA Specific [place]co 1.015 Last Edit by IRAIDA Vaca on 11/14/24 08:11 UA Ketone Negative Last Edit by [place] Hugo CCM on 11/14/24 08:11 UA Bilirubin 0 mg/dL Last Edit by IRAIDA Vaca on 11/14/24 08:11 UA Glucose 0 mg/dL Last Edit by [place] Hugo CCM on 11/14/24 08:11 Results Reviewed Results Reviewed: Laboratory Last Values Urine pH (Auto) 6.0 11/14/24 08:10 Specific Arco (Auto) 1.015 11/14/24 08:10 Urine Protein (Auto) 0 mg/dL 11/14/24 08:10 Glucose (UA)(Auto) 0 mg/dL 11/14/24 08:10 Urine Ketones (Auto) Negative 11/14/24 08:10 Urine Blood (Auto) 0 Domenico/uL 11/14/24 08:10 Urine Nitrite (Auto) Negative 11/14/24 08:10 Urine Bilirubin (Auto) 0 mg/dL 11/14/24 08:10 Urine Urobilinogen (Auto) 0.2 mg/dL 11/14/24 08:10 Leukocyte Esterase (Auto) 0 Silvina/uL 11/14/24 08:10 Assessment & Plan Assessment & Plan (1) Erectile dysfunction: Code(s): N52.9 - Male erectile dysfunction, unspecified Category: Medical Plan In office urinalysis results reviewed with the patient today; as noted above. We did discuss at length potential cause of ED as well as further treatment options and risks and benefits of these treatment options Refill provided on p.r.n. Viagra. We did discussed the importance of lifestyle modifications to assist with ED as well as overall health and well-being. Will obtain testosterone, PSA, and A1c for further assessment evaluation. All questions were answered. He denies any bothersome urinary issues or concerns. He reports be happy with current voiding parameters. Follow-up in 1-3 months with labs to be completed prior; or sooner with any issues, concerns, and or questions. Orders: Orders AMB Urinalysis Automated Today Z13.9 - Encounter for screening, unspecified Hemoglobin A1c Today E11.9 - Type 2 diabetes mellitus without complications Testosterone, Free/Total Today N52.9 - Male erectile dysfunction, unspecified Lutenizing Hormone Today N52.9 - Male erectile dysfunction, unspecified Prostate Specific Antigen Today N52.9 - Male erectile dysfunction, unspecified Medications: Changed From sildenafil 100 mg PO PRN To sildenafil [id number] [facility] GroupGDRX Member [id number] 100 mg PO .PRN PRN 14 tabs 3RF sexual activity 30 days Coding Level of Care Code New Pt Level 3 (24673) Diagnoses Erectile dysfunction N52.9
== END 2024-11-14 08:52 | disposition home or self-care (01) ==
LOC: HO.HUSH 07:56
PROVIDERS: PCP Family Medicine; Visit Provider Nurse Practitioner Family
DX: N52.9 Male erectile dysfunction, unspecified (principal); Z13.9 Encounter for screening, unspecified
CPT/HCPCS: 99203

== ENCOUNTER → 2024-11-14 07:55 | Outpatient (BNVA) | payer BC, SELFPAY | PROVIDERS: PCP Family Medicine; Visit Provider Nurse Practitioner Family | DX: N52.9 Male erectile dysfunction, unspecified (principal); E11.9 Type 2 diabetes mellitus without complications; Z13.9 Encounter for screening, unspecified | CPT/HCPCS: 81003 ==

== ENCOUNTER 2025-01-16 10:06 | Outpatient (AMB) | payer BC, SELFPAY ==
--- NOTE | 2025-01-16 10:10 | HO.NEPHOV ---
Vital Signs 01/16/25 10:11 Height 6 ft Weight 278 lb BMI 37.7 BP 110/74 Blood Pressure Location Lt brachial Position Sitting Pulse 102 H Pulse Source Pulse Oximeter Pulse Oximetry (%) 97 Oxygen Delivery Method Room Air Intake Visit Reasons: 6 MO FU lvm Project Management It Specialist Required: No Accompanied by: Self / Same As Patient Allergies Seasonal Allergies Allergy (Unknown, Verified 01/16/25 10:13) Unknown Medication List - Last Reconciled 01/16/25 by Humza Frederick MD amlodipine 2.5 mg PO DAILY lisinopril 20 mg PO .evening rosuvastatin 5 mg PO DAILY sildenafil 100 mg PO .PRN PRN 30 days spironolacton-hydrochlorothiaz 25-25 mg 1 tab PO DAILY HPI Comments Details: Jose is a pleasant 52 yr old man with a h/o of longstanding hypertension Blood pressure has been difficult to control and hence this referral He is on Lisinopril 20 mg, HCTZ 12.5 mg and Amlodipine 5 mg daily Amlodipine was decreased from 10 mg down to 5mg due to edema h/o YOLANDE- uses CPAP most of the nights Drinks alcohol over weekends- socailly; Usualy , [place]- upto 4 ROS No weight loss No shortness of breath No chest pain No nausea or vomiting No diarrhea No polyuria, oliguria No edema No headache No palpitations or unexplained sweating 08/22/2023. Underwent 24 hour ABPM 09/21/2023. He has been monitoring blood pressure at home and systolic blood pressure between 130 and 140 mm Hg with a diastolic between 80 and 90 mm Hg. No new complaints today. Tolerating all his medications 07/18/24 Doing well and blood pressure is well controlled No lightheadedness 01/16/25 The patient is a 54-year-old male presenting with hypertension management. The patient has been on amlodipine, which was recently reduced to half the dose due to concerns about peripheral edema. The patient reports not regularly monitoring blood pressure at home but denies experiencing any lightheadedness. The patient has a history of peripheral edema, which may be related to amlodipine use. The patient acknowledges not being careful with salt intake, which could exacerbate the edema. The patient also has a history of fatty liver, which is being monitored by gastroenterology. The patient is advised to keep an eye on this condition and coordinate blood tests with other appointments. PFSH Medical History Hypersomnia Snoring Obstructive sleep apnea Surgical History H/O colonoscopy (~07/2022) Family History Mother Breast cancer Brother Melanoma Father Cancer of prostate Social History Patient Tobacco Use Status: Former Tobacco user Physical Exam Vital Signs: Last Vital Signs Pulse 102 H 01/16/25 10:11 BP 110/74 01/16/25 10:11 Pulse Ox 97 01/16/25 10:11 Oxygen Delivery Method Room Air 01/16/25 10:11 BMI result Body Mass Index 37.7 Const General: comfortable; No acute distress Orientation/consciousness: patient oriented x3 Eyes General: appearance normal, both eyes and all related structures Visual Farooq: normal visual farooq by confrontation Neck Neck: Yes supple and Yes no JVD Resp Effort & Inspection: normal respiratory effort and respiratory effort not decreased Auscultation: no rhonchi Cardio Palpation: no palpable S3 and no palpable S4 Heart sounds: no rubs GI Inspection: Yes normal to inspection Palpation (GI): Soft to palpation Percussion: Yes normal to percussion Auscultation: normal bowel sounds General: Yes no CVA tenderness Back/Spine/Pelvis Back: no CVA tenderness Skin General skin exam: no petechiae and no purpura Neuro General: patient oriented x3 and no focal motor deficits Extrem General: No clubbing and No edema Results Reviewed Results Reviewed: Labs reveiwed Assessment & Plan Assessment & Plan (1) HTN (hypertension): Code(s): I10 - Essential (primary) hypertension Category: Medical Qualifiers: Hypertension type: primary hypertension Qualified Code(s): I10 - Essential (primary) hypertension (2) Sleep apnea: Code(s): G47.30 - Sleep apnea, unspecified Category: Medical Plan Middle aged man with difficult to control HTN in a setting of YOLANDE and elevated BMI ABPM. Results: Daytime average blood pressure was 150/102 Nighttime average blood pressure 133/87 24 hour average blood pressure was 145/97. Based on ABPM, blood pressure is suboptimally controlled with suboptimal nocturnal dipping. Sleep apnea could be contributing to this as well. Currently BP is well controlled no orthostasis Plan Keep Aldactazide / 1 a day. Keep amlodipine 5 mg in the morning Continue lisinopril 20 mg q.p.m. instead of morning Discussed low salt diet and increasing physical activity. Limit alcohol intake 07/18/2024. The blood pressure relatively low today. I will decrease amlodipine down to 2.5 mg in the morning. Encouraged to keep monitoring blood pressure at home. 01/16/25 BP well controlled Can DC Amlodipine 2.5 mg QD Watch BP at home Renal panel ordered Orders: Orders Basic Metabolic Panel 6 Months I10 - Essential (primary) hypertension Basic Metabolic Panel Today I10 - Essential (primary) hypertension Coding Level of Care Code Est Pt Level 4 (06220) Diagnoses Primary hypertension I10 Hypertension type: primary hypertension Sleep apnea G47.30
[2025-01-16 10:11] VITALS: BP 110/74; PULSE 102; O2SAT 97; BMI 37.7
== END 2025-01-16 10:27 | disposition home or self-care (01) ==
LOC: HO.HKA 10:07
PROVIDERS: PCP Family Medicine; Visit Provider Internal Medicine Hypertension Specialist
DX: I10 Essential (primary) hypertension (principal); G47.30 Sleep apnea, unspecified
CPT/HCPCS: 99214

== ENCOUNTER 2025-01-16 10:37 | Outpatient (REF) | payer BC, SELFPAY ==
[2025-01-16 13:42] LABS: Anion Gap 13 (12-20); Blood Urea Nitrogen 17 mg/dL (9-16); Calcium 9.5 mg/dL (8.4-10.2); Carbon Dioxide 26 mmol/L (22-29); Chloride 102 mmol/L (96-108); Estimated Glomerular Filt Rate > 60; Potassium 3.6 mmol/L (3.3-5.1); Sodium 137 mmol/L (135-145)
[2025-01-16 13:56] LABS: Prostate Specific Antigen 0.47 ng/mL (<0.05-4.0)
[2025-01-21 15:13] LABS: Testosterone, Free 61.1 pg/mL (35.0-155.0)
== END 2025-01-16 10:38 | disposition home or self-care (01) ==
LOC: HO.10HDL 10:37
PROVIDERS: Nurse Practitioner Family; Visit Provider Internal Medicine Hypertension Specialist
DX: Z12.5 Encounter for screening for malignant neoplasm of prostate (principal); Z13.1 Encounter for screening for diabetes mellitus; I10 Essential (primary) hypertension; G47.33 Obstructive sleep apnea (adult) (pediatric); N52.9 Male erectile dysfunction, unspecified
CPT/HCPCS: 36415; 80048; 83002; 83036; 84153; 84402; 84403

== ENCOUNTER 2025-03-10 07:27 | Outpatient (AMB) | payer BC, SELFPAY ==
--- NOTE | 2025-03-10 07:27 | MHC.OFFVIS ---
Intake Visit Reasons: 2m/labs(SET) Intake Note: patient presents today for 2 mo follow up for ED urology medications: Sildenafil blood thinners: none No abx allergy Labs done 01/16/25 , Total Testosterone 291, Fr Testosterone 61.1, Lutenizing Hormone 2.1, HgbA1c 5.1, PSA 0.47 Diamond Powder Mixer Required: No Accompanied by: Self / Same As Patient Allergies Seasonal Allergies Allergy (Unknown, Verified 03/10/25 08:28) Unknown Medication List - Last Reconciled 03/10/25 by Lavern Calderon [facility]- clomiphene citrate 100 mg (2 x 50 mg) PO DAILY 7 days lisinopril 20 mg PO .evening rosuvastatin 5 mg PO DAILY sildenafil 100 mg PO .PRN PRN 30 days spironolacton-hydrochlorothiaz 25-25 mg 1 tab PO DAILY HPI Comments Details: Jose is a 54-year-old male patient of Dr. Xie. He has a past medical history of sleep apnea. He is being followed up on today via telehealth. Of note, patient was seen approximately 3 months ago as a new patient for erectile dysfunction at which time were ordered for further assessment evaluation. These results were reviewed and communicated with the patient today. PSA: 02/04 0.5 Testosterone: 02/04 291 Free testosterone: 02/04 61.1 LH: 02/04 2.1 We did discuss borderline low testosterone. We reviewed at length further treatment options and risks and benefits of these treatment options. He does report somewhat improvement in his erections with PRN Viagra. When asked he denies any bothersome urinary issues. He denies urinary urgency, urinary frequency, incontinence, nocturia, hematuria, dysuria, foul smelling urine, changes to urinary stream, flank pain, fever, and or chills. He is happy with his current voiding parameters. He denies any previous history of trauma. He also reports previously trialing p.r.n. tadalafil however do not feel this was as helpful as Viagra. We did discuss potential causes of ED/borderline hypogonadism as well as further treatment options and risks and benefits of these treatment options. We discussed the importance of lifestyle modifications to assist with ED as well as overall health and well being. All questions were answered. He otherwise offers no other issues or concerns at this time. COUNTS INCLUDE 234 BEDS AT THE [facility] Medical History Hypersomnia Snoring Obstructive sleep apnea Surgical History H/O colonoscopy (~07/2022) Family History Mother Breast cancer Brother Melanoma Father Cancer of prostate Social History Patient Tobacco Use Status: Former Tobacco user Review of Systems Const All systems reviewed & are unremarkable except as noted in HPI and below Physical Exam Const General: cooperative Orientation/consciousness: patient oriented x3 Resp Effort & Inspection: able to speak in complete sentences Neuro General: patient oriented x3 Psych Speech and movement: Clear speech present Attitude: cooperative Insight: Fair insight present (Psych) Judgement: Fair judgement present (Psych) Telehealth Telehealth Telehealth Platform: [employer] Location of provider rendering services: practice address Location of patient: address on file Patient Identification confirmed using: Name, : Yes Telehealth method: voice only Patient verbally consented to treatment: Yes Patient verbally consented to billing insurance company: Yes Patient informed of any privacy concerns related to visit: Yes Minutes spent on Phone/Video with Pt.: 20 Assessment & Plan Assessment & Plan (1) Erectile dysfunction: Code(s): N52.9 - Male erectile dysfunction, unspecified Category: Medical (2) Hypogonadism in male: Code(s): E29.1 - Testicular hypofunction Category: Medical Plan Most recent lab results reviewed with the patient today; as noted above. We did discussed potential causes of borderline hypogonadism as well as further treatment options and risks and benefits of these treatment options. All questions were answered. We discussed testosterone advent verses testosterone replacement; risks and benefits of these interventions were discussed. He currently denies any bothersome lower urinary tract symptoms. He reports be happy with current voiding parameters. Start Clomid as discussed and prescribed. Will obtain labs as discussed (estradiol, LH, PSA, SHBG, FSH, prolactin, free testosterone, and testosterone) Follow-up in 6-8 weeks with labs to be completed prior; or sooner with any issues, concerns, and or questions. Orders: Orders Estrad Free (Tot Ultra + Free) Today E29.1 - Testicular hypofunction, N52.9 - Male erectile dysfunction, unspecified Lutenizing Hormone Today E29.1 - Testicular hypofunction, N52.9 - Male erectile dysfunction, unspecified Prostate Specific Antigen Today E29.1 - Testicular hypofunction, N52.9 - Male erectile dysfunction, unspecified Sex Hormone Binding Globulin Today E29.1 - Testicular hypofunction, N52.9 - Male erectile dysfunction, unspecified Follicle Stimulating Hormone Today E29.1 - Testicular hypofunction, N52.9 - Male erectile dysfunction, unspecified Prolactin Today E29.1 - Testicular hypofunction, N52.9 - Male erectile dysfunction, unspecified Testosterone, Free/Total Today E29.1 - Testicular hypofunction, N52.9 - Male erectile dysfunction, unspecified Medications: New clomiphene citrate Please get labs done as discussed [id number] [facility] [id number] Member [id number] 100 mg (2 x 50 mg) PO DAILY 14 tabs 0RF 7 days E29.1 - Testicular hypofunction, R79.89 - Other specified abnormal findings of blood chemistry Coding Level of Care Code Tele Est Pt Level 4 (81044) Diagnoses Erectile dysfunction N52.9 Hypogonadism in male E29.1
== END 2025-03-10 08:43 | disposition home or self-care (01) ==
LOC: HO.HUSH 07:27
PROVIDERS: PCP Internal Medicine; Visit Provider Nurse Practitioner Family
DX: N52.9 Male erectile dysfunction, unspecified (principal); E29.1 Testicular hypofunction
CPT/HCPCS: 98967